=== PATIENT | female | born 1945 | race Caucasian/White ===

== ENCOUNTER → 2017-01-27 | Outpatient (CLI) | payer OTHER | LOC: CIMAGING 07:23 | DX: Z12.31 Encounter for screening mammogram for malignant neoplasm of breast (principal); Z80.3 Family history of malignant neoplasm of breast | CPT/HCPCS: G0202 ==

== ENCOUNTER → 2018-02-01 | Outpatient (CLI) | payer OTHER | LOC: CIMAGING 07:26 | PROVIDERS: ATTEND Internal Medicine | DX: Z12.31 Encounter for screening mammogram for malignant neoplasm of breast (principal) ==

== ENCOUNTER 2018-02-12 22:05 | Observation (INO) | payer OTHER ==
[2018-02-12] MEDS ORDERED: ASPIRIN 81 MG CHEWABLE TAB PO ONE (22:09)
--- NOTE | 2018-02-12 22:23 | CPEKG ---
Heart Rate: 72 RR Interval: 833 P-R Interval: 192 QRSD Interval: 84 QT Interval: 396 QTC Interval: 434 P [place]: 65 QRS [place]: -43 T Wave [place]: 68 EKG Severity - BORDERLINE ECG - EKG Impression: SINUS RHYTHM EKG Impression: LEFT AXIS DEVIATION EKG Impression: BORDERLINE T ABNORMALITIES, ANT-LAT LEADS Electronically Signed By: Ronaldo Camargo 12-Feb-2018 22:39:22
[2018-02-12] MEDS ORDERED: NITROGLYCERIN 0.4 MG BTL SL ONE ×2 (22:25→22:43)
--- NOTE | 2018-02-12 22:30 | EDPHY ---
H & P Stated Complaint: Chest pain, radiates L arm, for 2 hours. Took 325 ASA. Source: Patient Exam Limitations: No limitations - Personal History Current Tetanus/Diphtheria Vaccine: Unsure Current Tetanus Diphtheria and Acellular Pertussis (TDAP): Unsure - Medical/Surgical History Hx Asthma: No Hx Chronic Respiratory Disease: No Hx Diabetes: No Hx Cardiac Disease: No Hx Renal Disease: No Hx Cirrhosis: No Hx Alcoholism: No Hx HIV/AIDS: No Hx Splenectomy or Spleen Trauma: No Other PMH: Breast biopsies, HTN, high cholesterol, hypothyroidism. - Family History Significant Family History: No pertinent family hx. No: Heart disease, Vascular disease - Social History Smoking Status: Never smoked Alcohol Use: Occasionally Drug Use: None Time Seen by Provider: 02/12/18 22:09 HPI/ROS: 2 hr prior to arrival while standing in line to get an ice-cream, the patient had abrupt onset of sharp pain the left shoulder and chest that was fleeting followed by a mild ache substernal location that persists. Peak intensity was 6 /10 and again fleeting, current ache is 1/10 and described as a pressure. She notes mild dyspnea associated with this without other symptoms except for a mild frontal headache 1/10 intensity that is bilateral in location similar to prior headaches. No other associated symptoms. No exacerbating factors noted. She took 1 adult aspirin prior to arrival and her female partner drove her in for further evaluation by private vehicle. ROS: Constitutional: No fevers or chills HEENT: No URI symptoms Pulmonary: No coughing lately over the past week though prior to that she had URI symptoms and a dry cough for approximately a week that resolved without specific intervention. Cardiovascular: No heart palpitations or lightheadedness. No leg swelling or pain. GI: No nausea vomiting or abdominal pain. : No complaints new line integumentary: No skin rash or diaphoresis Endocrine: No complaints Neuro: No headache. No numbness tingling or weakness. Complete review of symptoms otherwise negative. (Ronaldo Camargo) - Medical/Surgical History PMH: Essential hypertension Hypercholesterolemia (Ronaldo Camargo) - Physical Exam Exam: Pleasant 72-year-old female no acute distress. Initial vital signs notable for hypertension. Otherwise normal General Appearance: Alert, no distress. Eyes: Pupils equal and round no pallor or injection. ENT, Mouth: Mucous membranes moist. Respiratory: There are no retractions, lungs are clear to auscultation. Cardiovascular: Regular rate and rhythm. No murmur gallop rub. No JVD. No peripheral edema. She maintains 2+ symmetric radialis pulses bilaterally. No chest wall tenderness to palpation. Gastrointestinal: Abdomen is soft and nontender, no masses, bowel sounds normal. Neurological: GCS 15 with no focal deficits. Skin: Warm and dry, no rashes. Musculoskeletal: Neck is supple nontender. Extremities are symmetrical, full range of motion. Psychiatric: Mood and affect are normal DIFFERENTIAL DIAGNOSIS: After history and physical exam differential diagnosis was considered for aortic dissection, pulmonary embolism, pneumothorax, pneumonia, myocardial ischemic disease, GERD with esophageal spasm, musculoskeletal pain (Ronaldo Camargo) Constitutional: Initial Vital Signs Temperature (C) 36.7 C 02/12/18 22:05 Heart Rate 85 02/12/18 22:05 Respiratory Rate 20 02/12/18 22:05 Blood Pressure 205/111 H 02/12/18 22:05 O2 Sat (%) 93 02/12/18 22:05 O2 Delivery Mode Room Air O2 (L/minute) 2 Allergies/Adverse Reactions: codeine Allergy (Intermediate, Verified 02/12/18 22:15) Hives Penicillins Allergy (Intermediate, Verified 02/12/18 22:15) Hives Sulfa (Sulfonamide Antibiotics) Allergy (Intermediate, Verified 02/12/18 22:15) Hives latex Allergy (Verified 02/13/18 08:57) Home Medications: Medication Instructions Recorded Aspirin [Aspirin 81mg (*)] 81 mg PO DAILY 04/23/13 Atorvastatin Calcium [Lipitor 20 20 mg PO DAILY 02/12/18 mg (*)] Levothyroxine [Synthroid 75 mcg 75 mcg PO DAILY06 02/12/18 (*)] amLODIPine BESYLATE [Norvasc 2.5 2.5 mg PO DAILY 02/12/18 mg (*)] Ascorbic Acid [Vitamin C 500 mg 500 mg PO DAILY 02/13/18 (*)] Cholecalciferol Vit D3 [Vitamin D3 1,000 units PO DAILY 02/13/18 (*)] Herbals/Supplements -Info Only 1 ea PO DAILY 02/13/18 [place]-3 Fatty Acids [Fish Oil 1000 1,000 mg PO DAILY 02/13/18 mg (*)] Propylene Glycol/Peg 400 [SYSTANE 1 drop EACHEYE BID 02/13/18 0.3-0.4% EYE DROPS] Medical Decision Making - Diagnostics Imaging: I viewed and interpreted images myself (Chest x-ray) - Diagnostics EKG Interpretation: 12 lead EKG performed shortly after arrival at 10:20 p.m. Reveals sinus rhythm at 72 Intervals: P R of 192, QRS of 84, QTC of 434 [place]: P of 65, QRS of 43, T of 68 ST segments: Normal throughout the exception of flat T-wave in V2 and poor anterior R-wave progression Overall assessment sinus rhythm with left axis deviation and anterior T-wave abnormalities-cannot rule out anterior ischemia or subacute infarct (Ronaldo Camargo) Imaging Results: Single-view portable chest x-ray: Normal by my interpretation (Ronaldo Camargo) ED Course/Re-evaluation: Pt care turned over at shift change. CTA negative for pe, or dissection. Hospitalist paged for admission @[phone] [facility] Discussed with Dr Hopson. Bed assigned, ambulance contacted. Pt resting comofortably awaiting ambulance transfer. MG (Sun Hutson) IV, monitor, SL nitroglycerin x 3 with slight improvement in discomfort and reduction in her blood pressure to normotensive state. This is followed by 0.5 in nitropaste. She took aspirin prior to arrival here. Studies: H&H are normal, white count is pending, basic metabolic panel is normal, troponin is normal Given the abrupt onset of sharp pain in her chest associated with dyspnea and mild hypoxia, patient states may have pulmonary embolism. After dissection is another consideration. Given these concerns will proceed with CT angio chest for further evaluation. A review of her heart score given age, chest pain, hypertension hypercholesterolemia and negative 1st troponin she comes in with a heart score for warranting admission. At 11:00 p.m. I discussed this case with Dr. Sun galicia be, oncoming emergency physician will follow up with CT study results and final disposition. (Ronaldo Camargo) - Data Points Medications Given: Discontinued Medications Amlodipine Besylate (Norvasc) 5 mg PO DAILY CHARLENE Stop: 08/12/18 08:59 Last Admin: 02/13/18 08:34 Dose: 5 mg Aspirin (Aspirin) 324 mg PO EDNOW ONE Stop: 06/25/18 22:10 Last Admin: 02/12/18 22:25 Dose: Not Given Sodium Chloride (Ns) 500 mls @ 0 mls/hr IV EDNOW ONE; Wide Open PRN Reason: Protocol Stop: 02/12/18 22:48 Last Admin: 02/12/18 22:48 Dose: 500 mls Nitroglycerin (Nitrostat) 0.4 mg SL EDNOW ONE Stop: 02/12/18 22:26 Last Admin: 02/12/18 22:36 Dose: 0.4 mg Nitroglycerin (Nitrostat) 0.4 mg SL EDNOW ONE Stop: 02/12/18 22:44 Last Admin: 02/12/18 22:43 Dose: 0.4 mg Nitroglycerin (Nitrostat) 0.4 mg SL EDNOW PRN PRN Reason: Chest Pain Last Admin: 02/12/18 22:53 Dose: 0.4 mg Nitroglycerin (Nitro-Bid 2%) 0.5 inch TP EDNOW ONE Stop: 02/12/18 22:45 Last Admin: 02/12/18 23:20 Dose: Not Given Pneumococcal 13-Valent Conj Vacc (Prevnar 13 Syringe) 0.5 ml IM .ONCE ONE Stop: 02/13/18 09:43 Last Admin: 02/13/18 11:48 Dose: 0.5 ml Point of Care Test Results: CBC CBC Collection Date 02/12/18 CBC Collection Time 22:35 WBC 8.9 RBC 4.91 HGB 14.9 HCT 45.0 PLT 247 Neut # 6.7 Neut 75.8 LYMPH # 1.7 LYMPH 18.8 Chemistry 02/12/18 02/12/18 22:32 22:29 POC Sodium 142 mEq/L mEq/L (135-145) POC Potassium 3.4 mEq/L mEq/L (3.3-5.0) POC Chloride 105 mEq/L mEq/L (97-110) POC BUN 22 mg/dL mg/dL (7-23) POC Creatinine 1.1 mg/dL H mg/dL (0.6-1.0) POC Glucose 105 mg/dL H mg/dL (70-100) POC Troponin I 0.00 ng/mL ng/mL (0.00-0.08) ISTAT H&H 02/12/18 22:32 POC Hgb 15.0 gm/dL gm/dL (12.6-16.3) POC Hct 44 % % (38-47) Departure - [facility] Clinical Impression: Chest pain Condition: Good
[2018-02-12] MEDS ORDERED: NITROGLYCERIN 0.4 MG BTL SL PRN (22:43)
[2018-02-12] MEDS ORDERED: NITROGLYCERIN 2% 1 GM PACKET TP ONE (22:44)
[2018-02-12] MEDS ORDERED: NS 500 ML IV ONE (22:47)
[2018-02-12] MEDS ORDERED: IOPAMIDOL (ISOVUE 370) 100 ML BTL IV ONE (22:52)
[2018-02-13] MEDS ORDERED: ACETAMINOPHEN 325 MG TAB PO PRN (00:35)
[2018-02-13] MEDS ORDERED: ONDANSETRON 4 MG/2 ML VIAL IVP PRN (00:35)
[2018-02-13] MEDS ORDERED: NITROGLYCERIN 0.4 MG BTL SL PRN (00:38)
[2018-02-13] MEDS ORDERED: NS 1,000 ML IV SCH (00:45)
[2018-02-13 04:24] LABS: CREATINE KINASE 86 IU/L (0-156)
--- NOTE | 2018-02-13 06:24 | PDGENHP ---
History and Physical - Chief Complaint Chest pain - History of Present Illness Source-patient provides history and appears reliable. EMR was reviewed and case discussed with ED provider at [facility] before transfer. HPI-this is a pleasant 72-year-old female with past medical history significant for hypothyroidism and HTN, HLD for which patient was recently just started on amlodipine 2.5 mg daily and statin in the last several days. Patient reports that she was in her usual state of health until this evening. She and her housemate were walking to the [place] when she suddenly developed left- sided chest pain. Initially symptoms were sharp 6/10 in nature without any radiation down her arm or up her neck. Patient sat down and the sharp pain subsided however patient subsequently developed a substernal aching and pressure type feeling 1/10. Patient has had a history of stress test in the past last being in 2011 all of which were negative. Patient continued to experience aching pain. She took us 325 mg aspirin before arrival to the ER. She continued to experience the subtle aching pain. Patient denies any shortness of breath, diaphoresis, nausea or vomiting. She did feel a little bit lightheaded. She also had a mild headache. Patient reports that she remains fairly active. She has not experienced any chest pain similar recently. She denies any lower extremity edema, PND, orthopnea. In the ED, patient was noted to have an elevated blood pressure of 205/111. Patient reports that her systolic blood pressures normally 130s. Again she was recently started on amlodipine after discussion with her primary care provider on reviewing options for medications and she elected the amlodipine after considering side effect profiles. She was started on 2.5 mg and has not noted any significant change in her blood pressures. Additionally patient has just been started on statin therapy in the last 3 days. In the emergency department patient was given 3 sublingual nitroglycerin and after the 3rd her chest pain appeared to subside. Patient reports the very mild aching finally resolved approximately 2:00 a.m. Shortly after arriving to the hospital. Listed is notation for nitroglycerin paste but patient reports that this was not applied. History Information - Allergies/Home Medication List Allergies/Adverse Reactions: codeine Allergy (Intermediate, Verified 02/12/18 22:15) Hives Penicillins Allergy (Intermediate, Verified 02/12/18 22:15) Hives Sulfa (Sulfonamide Antibiotics) Allergy (Intermediate, Verified 02/12/18 22:15) Hives Home Medications: Aspirin [Aspirin 81mg (OTC)] 81 mg PO DAILY@08 04/23/13 [Last Taken 04/23/13 08: 00] Calcium Carbonate [Oyster Shell Calcium 500 mg (OTC)] 500 mg PO DAILY 04/23/13 [ Last Taken 04/23/13 08:00] Ibuprofen [Advil] 400 mg PO DAILY PRN 04/23/13 [Last Taken 04/22/13] Levothyroxine [Synthroid 75 mcg (RX)] 75 mcg PO DAILY06 04/23/13 [Last Taken 10/31 07:00] Multivitamins [Tab-A-Deena] 1 tab PO DAILY 04/23/13 [Last Taken 04/22/13 15:00] Amlodipine Besylate 02/12/18 [Last Taken Unknown] Levothyroxine 02/12/18 [Last Taken Unknown] Statin 02/12/18 [Last Taken Unknown] I have personally reviewed and updated: family history, medical history, social history, surgical history - Past Medical History hypertension, hyperlipidemia Additional medical history: Hypothyroidism - Surgical History Additional surgical history: Breast biopsy x3. Cataract extraction with lens placement bilaterally. - Family History Additional family history: Mother with history of HTN. No family members with history of CAD/UT/CHF or early cardiac . - Social History Smoking Status: Never smoked Alcohol Use: Occasionally Drug Use: None Additional social history: Patient resides with a housemate. Cor status-full. Review of Systems Review of Systems: ROS: 10pt was reviewed & negative except for what was stated in HPI & below Constitutional: Reports: no symptoms, other (Right breast lump scheduled for ultrasound) Respiratory: Denies: cough, shortness of breath Genitourinary: Reports: other (Patient treated for UTI approximately 3 weeks ago.). Denies: dysuria, hematuria Physical Exam Physical Exam: Selected Entries 02/12/18 22:05 Blood Pressure Automatic Method Heart Rate 85 Respiratory 20 Rate O2 Sat (%) 93 Temperature (C) 36.7 C Blood Pressure 205/111 H Mean Arterial 142 H Pressure (MAP) O2 Delivery Room Air Mode Temperature Oral Source Temp Pulse Resp BP Pulse Ox 36.5 C 70 17 161/87 H 96 02/13/18 02:30 02/13/18 02:30 02/13/18 02:30 02/13/18 02:30 02/13/18 02:30 O2 (L/minute) 2 Constitutional: no apparent distress, appears nourished, not in pain, other ( NAD. Pleasant adult female is resting quietly in bed.) Eyes: PERRL (Lens reflex appreciated bilaterally.), anicteric sclera, EOMI, No scleral injection Ears, Nose, Mouth, Throat: moist mucous membranes, no oral mucosal ulcers, other (No nasal discharge.) Cardiovascular: regular rate and rhythym, no murmur, rub, or gallop, pulses symmetric bilaterally, No edema Peripheral Pulses: 2+: dorsalis-pedis (R), dorsalis-pedis (L) Respiratory: no respiratory distress, no rales or rhonchi, clear to auscultation , No respiratory distress Gastrointestinal: normoactive bowel sounds, soft, non-tender abdomen, no palpable masses, No distension Genitourinary: no bladder tenderness Skin: warm, normal color, no rashes or abrasions Musculoskeletal: full muscle strength, no muscle tenderness, other (Grossly normal strength. Patient sits up independently.) Neurologic: AAOx3, sensation intact bilaterally, other (Grossly nonfocal exam.) , No facial droop Psychiatric: interacting appropriately, not anxious, not encephalopathic, thought process linear, other (Thought process content and questions are appropriate. Patient is pleasant and cooperative.) Lab Data & Imaging Review 02/13/18 03:21 POC Hgb 15.0 gm/dL (12.6-16.3) 02/12/18 22:32 POC Hct 44 % (38-47) 02/12/18 22:32 POC Sodium 142 mEq/L (135-145) 02/12/18 22:32 Sodium 144 mEq/L (135-145) 02/13/18 03:21 POC Potassium 3.4 mEq/L (3.3-5.0) 02/12/18 22:32 Potassium 3.9 mEq/L (3.3-5.0) 02/13/18 03:21 POC Chloride 105 mEq/L (97-110) 02/12/18 22:32 Chloride 111 mEq/L (97-110) H 02/13/18 03:21 Carbon Dioxide 26 mEq/l (22-31) 02/13/18 03:21 Anion Gap 7 mEq/L (8-16) L 02/13/18 03:21 POC BUN 22 mg/dL (7-23) 02/12/18 22:32 BUN 18 mg/dL (7-23) 02/13/18 03:21 Creatinine 0.9 mg/dL (0.6-1.0) 02/13/18 03:21 POC Creatinine 1.1 mg/dL (0.6-1.0) H 02/12/18 22:32 Estimated GFR > 60 02/13/18 03:21 Glucose 90 mg/dL (70-100) 02/13/18 03:21 POC Glucose 105 mg/dL (70-100) H 02/12/18 22:32 Calcium 9.0 mg/dL (8.5-10.4) 02/13/18 03:21 Creatine Kinase 86 IU/L (0-156) 02/13/18 03:21 CK-MB (CK-2) Fraction 0.96 ng/mL (0.00-4.55) 02/13/18 03:21 POC Troponin I 0.00 ng/mL (0.00-0.08) 02/12/18 22:29 Troponin I < 0.012 ng/mL (0.000-0.034) 02/13/18 03:21 TSH 1.270 uIU/mL (0.465-4.680) 02/13/18 03:21 Imaging Review: Portable chest, single view. History: Chest pain. Dyspnea. Comparison: April 2013. Findings: Heart size is within normal limits. Pulmonary vascularity is normal. The lungs are clear. No evidence for pleural effusion or pneumothorax. Mild degenerative change thoracic spine. Impression: No evidence for acute cardiopulmonary abnormality. CT Chest Angiogram Comparison: Chest x-ray performed earlier today. Indication: Abrupt onset chest pain. Dyspnea. Technique: Thinly collimated multidetector helical CT imaging was performed through the chest while 85 mL of Isovue-370 were injected intravenously without complication. The images were then transferred to an independent workstation where multiplanar reconstructions were performed. Dose reduction techniques were utilized. Findings: CT Chest Angiogram: The pulmonary arterial system is well opacified. No intraluminal filling defects to suggest acute or chronic thrombopulmonary embolic disease. The thoracic aorta is normal caliber. No aneurysm or dissection. CT Chest: A 4.5 mm subpleural pulmonary nodule seen along the major fissure in the left lower lobe side of the major fissure image #113 of series 6. There is a 4.8 mm noncalcified pulmonary nodule seen on image #123 of series 6. The lungs are clear of consolidation. Minimal peribronchial wall thickening. Heart size is within normal limits. No evidence for pericardial effusion. Estimated mediastinal or hilar lymphadenopathy. Degenerative change thoracic spine. 2.5 cm round hypervascular enhancing lesion posterior superior aspect of the spleen. Impression: 1. No evidence of thrombopulmonary embolic disease. 2. Small noncalcified pulmonary nodules in the left lower lobe largest measuring 4.8 mm. If the patient is a smoker then recommend follow-up in 6-12 months. If the patient is a nonsmoker, per Fleischner Society criteria the patient can be considered low risk in no need for follow up. 3. 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 This is nonspecific. Recommend 3 phase postcontrast evaluation with MRI or CT for further evaluation. Results called and discussed with Dr. Sun Hutson at 02/12/2018 23: 40. Chest X-Ray results: no infiltrate EKG additional interpertation: NSR in the 70s. Lad. Patient with some T-wave flattening V2. Compared to EKG from 2013 otherwise does not appear significantly different. QTC of 434. Assessment & Plan Assessment: Pleasant 72-year-old female with history HTN, HLD, hypothyroidism presents from [facility] [place] with sudden onset of chest pain and elevated blood pressures. Chest pain (Acute) - DX including angina versus hypertensive urgency versus rule out dissection and PE on negative CTA. Patient's serial enzymes negative. Anticipate a treadmill stress test this morning. Patient reports that she will be able to complete this. She has baseline fairly active adult. Patient received 3 doses of nitroglycerin prior to arrival with improvement in her symptoms. Will leave available p.r.n.. Blood pressures have since improved following and nitroglycerin. He has not required any p.r.n. Hydralazine. See discussion below regarding blood pressure. Accelerated hypertension - patient's arrival blood pressure was 205/111 in the ED. She is status post 3 doses sublingual nitro with improvement in her blood pressures. Systolic blood pressures remained slightly elevated in the 160s. She was just recently started on amlodipine 2.5 mg. Discussed with the patient recommendations for first-line therapy in treatment of HTN however she had previously had this discussion with her primary provider already regarding her options for blood pressure control and weighing the potential side effect profile she elected to go with amlodipine. Discussed option to add or change blood pressure medications however patient would prefer to stick with same medication and so will recommend that she double her medication and follow up closely with her primary care doctor at discharge. Patient states that she just filled her prescription but requests refill at discharge as well for new dose if possible. Incidental finding of hypervascular lesion on the posterior aspect of the spleen - recommendations for multiphase MRI or CT scan to further evaluate this lesion needs to be followup up as outpatient and discussed with the patient at time of discharge. HLD - continue patient's statin therapy at discharge. She does not recall the name of the medication at this time. Hypothyroidism - TSH is acceptable. Continue patient's current home dosing 75 mcg of levothyroxine daily. FEN - sips of water overnight and NPO per stress test protocol. Electrolytes are adequate this time. Cardiac diet after negative stress. PPX-SCDs. Holding anticoagulation. Anticipating short hospital stay and encourage mobilization. Cor status-full Disposition-patient admitted observation status on PCU floor for close cardiac monitoring. Anticipate less than 2 midnight stay pending results of her stress test.
--- NOTE | 2018-02-13 08:58 | CPEKG ---
Heart Rate: 63 RR Interval: 952 P-R Interval: 200 QRSD Interval: 88 QT Interval: 424 QTC Interval: 435 P [place]: 20 QRS [place]: -35 T Wave [place]: 66 EKG Severity - ABNORMAL ECG - EKG Impression: SINUS RHYTHM EKG Impression: LEFT AXIS DEVIATION EKG Impression: CONSIDER ANTEROSEPTAL INFARCT Electronically Signed By: Johnny Cerna 15-Feb-2018 08:29:27
[2018-02-13] MEDS ORDERED: amLODIPine BESYLATE 5 MG TAB PO SCH (09:00)
[2018-02-13] MEDS ORDERED: PNEUMOC 13-VAL CONJ-DIP CRM/PF 0.5 ML SYR IM ONE (09:42)
--- NOTE | 2018-02-13 11:07 | PDCARST ---
CAR Stress Test Results Type of Stress Test: TM stress test Indication: cp Description of Procedure: After informed consent was obtained, pt was exercised according to Yonatan Protocol. Monitoring was performed with standard stress brick tester electrode placement. Vital signs were monitored according to protocol throughout the procedure. STRESS EKG AND HEMODYNAMIC DATA. Exercise time: 7 min. This is equivalent to: 8.1 METS. Resting heart rate: 85 bpm. Resting blood pressure: 128/82 mmHg. Resting O2 saturation: 93 %. Peak heart rate: 148 bpm. This is 100 % of age predicted maximum heart rate response. Peak blood pressure: 162/72 mmHg. Exercise O2: 98 %. Arrhythmias : None. Reason for termination: The test was stopped due to maximal effort. Symptoms: The patient experienced no typical symptoms of angina during stress or recovery. STRESS TEST ANALYSIS. Baseline ECG: SR. Stress ECG: ST. exercise induced ischemic ECG changes: No. Rhythm: No arrhythmias noted during exercise and recovery. Blood pressure: Normal blood pressure response to exercise. Exercise tolerance: The patient has normal exercise tolerance adjusted for age and gender. Symptoms: No exercise induced symptoms. Impression: Normal stress test Conclusion: Likely noncardiac cp
[2018-02-13 11:32] VITALS: BP 156/87
--- NOTE | 2018-02-13 16:26 | GDS ---
[f rep st] DISCHARGE SUMMARY ALL DIAGNOSES: 1. Noncardiac chest pain. Suspect musculoskeletal. 2. Hypertension. 3. Pulmonary nodule, not needing any followup. 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 5. Hyperlipidemia. 6. Hypothyroid. HOSPITAL COURSE: A 72-year-old female, presented with severe, sharp left-sided chest pain, which rad iated to her midsternum. She had a CT angiogram, which was negative for a PE. It did note 2 inciden jet findings as above. EKG showed no evidence of ischemia. Troponins were negative overnight. Exer cise treadmill stress test was negative. She is not having any additional chest pain. She notes solis t she has had lifelong problems with getting bras that fit. Her chest pain was relieved immediately last night when she took off her bra. I suspect that this is likely musculoskeletal. I have discuss ed this with her. FOLLOWUP: Follow up with her PCP for hypervascular spleen lesion needing additional imaging. I have discussed this with the patient and have given her that information in writing as well. Copy requested to: Dr. Iban Crooks /[id number]/[facility]
[2018-02-13] MEDS ORDERED: PEG EACHEYE SCH (21:00)
[2018-02-13] MEDS ORDERED: PROPYLENE GLYCOL EACHEYE SCH (21:00)
[2018-02-14] MEDS ORDERED: LEVOTHYROXINE 75 MCG TAB PO SCH (06:00)
[2018-02-14] MEDS ORDERED: ASPIRIN 81 MG CHEWABLE TAB PO SCH (09:00)
[2018-02-14] MEDS ORDERED: OMEGA-3 FATTY ACIDS 1,000 MG CAP PO SCH (09:00)
[2018-02-14] MEDS ORDERED: Herbals/Supplements -Info Only PO SCH (09:00)
[2018-02-14] MEDS ORDERED: ATORVASTATIN CALCIUM 20 MG TAB PO SCH (09:00)
[2018-02-14] MEDS ORDERED: ASCORBIC ACID 500 MG TAB PO SCH (09:00)
[2018-02-14] MEDS ORDERED: CHOLECALCIFEROL VIT D3 1,000 UNITS TAB PO SCH (09:00)
== END 2018-02-13 13:32 | disposition home or self-care (01) ==
LOC: CED 22:05 → CEDHOLD 02-13 00:11 → F2W 02-13 02:07
PROVIDERS: ADMIT Family Medicine; ATTEND Student in an Organized Health Care Education/Training Program
DX: R07.9 Chest pain, unspecified (principal); I10 Essential (primary) hypertension; R06.00 Dyspnea, unspecified; E86.9 Volume depletion, unspecified; R91.1 Solitary pulmonary nodule; D73.89 Other diseases of spleen; E78.5 Hyperlipidemia, unspecified; E03.9 Hypothyroidism, unspecified; Z88.0 Allergy status to penicillin; Z88.2 Allergy status to sulfonamides; Z23 Encounter for immunization
CPT/HCPCS: 71045; 71275; 90670; 93005; 93017; G0009; G0378; Q9967; 82435-PO; 82565-PO; 82947-PO; 84132-PO; 84295-PO; 84484-PO; 84520-PO; 85014-PO

== ENCOUNTER → 2018-02-19 | Outpatient (CLI) | payer OTHER | LOC: CIMAGING 13:19 | PROVIDERS: ATTEND Nurse Practitioner | DX: N63.10 Unspecified lump in the right breast, unspecified quadrant (principal) | CPT/HCPCS: 76641-PO ==

== ENCOUNTER → 2018-11-09 | Outpatient (CLI) | payer OTHER | LOC: EMCIMAGING 08:13 | PROVIDERS: ATTEND Internal Medicine | DX: D73.9 Disease of spleen, unspecified (principal) ==

== ENCOUNTER → 2019-02-15 | Outpatient (CLI) | payer OTHER | LOC: EMCIMAGING 08:56 ==